=== PATIENT | male | born 1970 | race Caucasian/White ===

== ENCOUNTER 2018-10-13 08:51 | Outpatient (CLI) | payer BC | END 2018-10-13 23:59 | disposition home or self-care (01) | LOC: VAS 08:51 | PROVIDERS: ATTEND Podiatrist Foot & Ankle Surgery | DX: M20.21 Hallux rigidus, right foot (principal); M19.071 Primary osteoarthritis, right ankle and foot | CPT/HCPCS: 93926; 93971 ==